=== PATIENT | male | born 1950 | race Caucasian/White ===

== ENCOUNTER 2020-12-31 18:55 | Emergency (ER) | payer MEDICARE ==
[~2020-12-31] VITALS: Ht 177.8 cm; Wt 113.4 kg
[2021-01-01 04:41] LABS: HEMOGLOBIN 15.1 gm/dl (14.0-17.5); RED BLOOD COUNT 5.28 M/UL (4.20-5.50); WHITE BLOOD COUNT 9.1 K/UL (4.5-11.0)
[2021-01-01 04:52] LABS: BUN/CREATININE RATIO 14 (0-10)
[2021-01-01] MEDS ORDERED: NEXIUM40 MG PO (12:09)
[2021-01-01] MEDS ORDERED: ZESTRIL5 MG PO (12:10)
[2021-01-01] MEDS ORDERED: GAS RELIEF125 M1 PO (12:10)
[2021-01-01] MEDS ORDERED: BENTYL 10MG CAP10 MG PO (12:10)
[2021-01-01] MEDS ORDERED: ATENOLOL50 MG PO (12:11)
[2021-01-01] MEDS ORDERED: OCUVITE EYE PL1 EACH PO (12:11)
[2021-01-01] MEDS ORDERED: TENORMIN25 MG PO (12:19)
[2021-01-01] MEDS ORDERED: ATIVAN1 MG PO (12:30)
[2021-01-01] MEDS ORDERED: TIMOLOL 0.5%-DO10 ML OU (12:37)
[2021-01-01] MEDS ORDERED: PREDNISOLONE ACE5 ML EYELF (12:38)
[2021-01-01] MEDS ORDERED: ACULAR 0.5% OP S5 ML EYELF (12:40)
[2021-01-01] MEDS ORDERED: GATIFLOXACIN2.5 ML EYELF (13:44)
== END 2021-01-01 18:05 | disposition home or self-care (01) ==
LOC: ER1 18:55 → CDU 19:27
PROVIDERS: Internal Medicine
DX: K85.90 Acute pancreatitis without necrosis or infection, unspecified (principal); Z20.822 Contact with and (suspected) exposure to COVID-19
CPT/HCPCS: 76705; 80053; 80061; 82550; 82553; 83605; 83690; 83874; 84484; 85025; 85027; 93005; 99284; 99285; G0378; J1650; J7030; Q9967; U0002

== ENCOUNTER → 2021-02-27 | Outpatient (CLI) | payer MEDICARE ==
[~2021-02-27] MED LIST: ACULAR 0.5% OP S5 ML EYELF; AMLODIPINE BESY10 MG PO; ATENOLOL50 MG PO; ATIVAN1 MG PO; BENTYL 10MG CAP10 MG PO; CARAFATE1 GM PO; ELIQUIS5 MG PO; FUROSEMIDE20 MG PO; GAS RELIEF125 M1 PO; GATIFLOXACIN2.5 ML EYELF; LOSARTAN POTASS50 MG PO; MECLIZINE HCL25 MG PO; NEXIUM40 MG PO; OCUVITE EYE PL1 EACH PO; PREDNISOLONE ACE5 ML EYELF; TENORMIN25 MG PO; TIMOLOL 0.5%-DO10 ML OU; ZENPEP PO; ZESTRIL5 MG PO; ZYRTEC10 MG PO
== END ==
LOC: ECHO 09:42
DX: R06.00 Dyspnea, unspecified (principal)
CPT/HCPCS: ECHO; 93306

== ENCOUNTER → 2021-03-15 | Outpatient (CLI) | payer MEDICARE ==
[2021-03-15 10:06] LABS: HEMOGLOBIN 16.9 gm/dl (14.0-17.5); RED BLOOD COUNT 5.62 M/UL (4.20-5.50)
[2021-03-15 10:37] LABS: BUN/CREATININE RATIO 24 (0-10)
== END ==
LOC: CATH 09:09
PROVIDERS: Internal Medicine Cardiovascular Disease
DX: I25.118 Atherosclerotic heart disease of native coronary artery with other forms of angina pectoris (principal); I11.0 Hypertensive heart disease with heart failure; I50.9 Heart failure, unspecified; I42.9 Cardiomyopathy, unspecified; I27.20 Pulmonary hypertension, unspecified; F41.9 Anxiety disorder, unspecified; K21.9 Gastro-esophageal reflux disease without esophagitis; Z87.891 Personal history of nicotine dependence; Z88.2 Allergy status to sulfonamides; Z79.899 Other long term (current) drug therapy
CPT/HCPCS: 36415; 80048; 82810; 84443; 85025; 85610; 93005; 99152; C1751; C1769; C1894; J1644; J2250; J3010; J7030; Q9967

== ENCOUNTER → 2021-04-05 | Outpatient (CLI) | payer MEDICARE | LOC: HEART 5 12:51 | DX: R06.02 Shortness of breath (principal) | CPT/HCPCS: 94010 ==

== ENCOUNTER → 2021-05-01 | Outpatient (CLI) | payer MEDICARE | LOC: EXRD 15:29 | DX: R06.02 Shortness of breath (principal) | CPT/HCPCS: 71046 ==

== ENCOUNTER → 2022-01-14 | Outpatient (CLI) | payer MEDICARE | LOC: EXRD 14:20 | DX: M25.552 Pain in left hip (principal); M25.551 Pain in right hip; M25.512 Pain in left shoulder; M25.511 Pain in right shoulder | CPT/HCPCS: 73030; 73522 ==